=== PATIENT | male | born 1960 | race Caucasian/White ===

== ENCOUNTER 2021-10-23 12:08 | Emergency (ER) | payer MEDICARE ==
[~2021-10-23] VITALS: Ht 172.7 cm; Wt 78.0 kg
[2021-10-23] MEDS ORDERED: NITROGLYCERIN 0.4 MG SL TABS BTL 25'S SL ONE ×2 (12:26→12:45)
[2021-10-23] MEDS ORDERED: LORazepam 0.5 MG (ATIVAN) TABLET PO STA (12:35)
[2021-10-23] MEDS ORDERED: NS IV 1000 ML 1,000 ML IV SCH (12:45)
--- NOTE | 2021-10-23 12:47 | ED Chest Pain ---
General Chief Complaint: Chest Pain Stated Complaint: SYNCOPAL EPISODES; TREMORS Source: patient Exam Limitations: no limitations History of Present Illness Date Seen by Provider: Oct 23, 2021 Time Seen by Provider: 12:22 Initial Comments 61-year-old male patient states states he was mowing his lawn about 2 hours prior to arrival to ER and woke up on the ground with pressure feeling on his chest chest like an elephant sitting on his chest, shortness of breath, numbness of his hand, nausea and vomiting x 1. Patient states he had 6 pack of beer last night and did not eat anything this morning. Patient states he does not remember any chest pain or any unusual condition before his syncope. Patient was anxious and hyperventilating at arrival to ER and states he had history of panic attack. Allergies and Home Medications Allergies Coded Allergies: codeine (Verified Allergy, Unknown, 10/23/21) Patient Home Medication List Home Medication List Reviewed: Yes Magnesium Oxide (Magnesium Oxide) 400 Mg Tablet, 400 MG PO DAILY Prescribed by: Radha bailey on 10/23/21 1406 Review of Systems Review of Systems Constitutional: dizziness, weakness EENTM: No Symptoms Reported Respiratory: Shortness of Air Cardiovascular: See HPI Gastrointestinal: See HPI Genitourinary: No Symptoms Reported Musculoskeletal: no symptoms reported Skin: no symptoms reported Psychiatric/Neurological: See HPI Endocrine: No Symptoms Reported Hematologic/Lymphatic: No Symptoms Reported All Other Systems Reviewed Negative Unless Noted: Yes Past Uppssur-Eujpia-Lufdsb Hx Patient Social History Tobacco Use?: Yes Substance use?: No Alcohol Use?: Yes Alcohol type: Beer Alcohol Frequency: Couple times a week Physical Exam Vital Signs Vital Signs - First Documented 10/23/21 12:14 Temp 36.5 Pulse 99 Resp 17 B/P (MAP) 148/99 (115) Pulse Ox 100 O2 Delivery Room Air Capillary Refill : Height, Weight, BMI Height: '" Weight: lbs. oz. kg; BMI Method: General Appearance: Anxious, Moderate Distress HEENT: PERRL/EOMI, Other (Dry oral mucosa) Neck: Full Range of Motion Respiratory: Chest Non Tender, Lungs Clear, Normal Breath Sounds, Other (Hyperventilation) Cardiovascular: Regular Rate, Rhythm, No Edema, No Gallop, No JVD, No Murmur Gastrointestinal: Normal Bowel Sounds, No Organomegaly Extremity: Normal Capillary Refill, Normal Inspection Neurologic/Psychiatric: Alert, Oriented x3, No Motor/Sensory Deficits, Normal Mood/Affect Skin: Normal Color Progress/Results/Core Measures Results/Orders Lab Results Laboratory Tests Test 10/23/21 12:22 10/23/21 12:25 10/23/21 14:05 Range/Units Glucometer 104 70-110 MG/DL White Blood Count 7.1 4.3-11.0 10^3/uL Red Blood Count 4.81 4.30-5.52 10^6/uL Hemoglobin 16.1 13.3-17.7 g/dL Hematocrit 46 40-54 % Mean Corpuscular Volume 96 80-99 fL Mean Corpuscular Hemoglobin 34 25-34 pg Mean Corpuscular Hemoglobin Concent 35 32-36 g/dL Red Cell Distribution Width 13.1 10.0-14.5 % Platelet Count 200 130-400 10^3/uL Mean Platelet Volume 10.6 9.0-12.2 fL Immature Granulocyte % (Auto) 1 % Neutrophils (%) (Auto) 57 42-75 % Lymphocytes (%) (Auto) 29 12-44 % Monocytes (%) (Auto) 10 0-12 % Eosinophils (%) (Auto) 3 0-10 % Basophils (%) (Auto) 0 0-10 % Neutrophils # (Auto) 4.1 1.8-7.8 10^3/uL Lymphocytes # (Auto) 2.1 1.0-4.0 10^3/uL Monocytes # (Auto) 0.7 0.0-1.0 10^3/uL Eosinophils # (Auto) 0.2 0.0-0.3 10^3/uL Basophils # (Auto) 0.0 0.0-0.1 10^3/uL Immature Granulocyte # (Auto) 0.0 0.0-0.1 10^3/uL Sodium Level 136 135-145 MMOL/L Potassium Level 3.5 L 3.6-5.0 MMOL/L Chloride Level 96 L 98-107 MMOL/L Carbon Dioxide Level 16 L 21-32 MMOL/L Anion Gap 24 H 5-14 MMOL/L Blood Urea Nitrogen 5 L 7-18 MG/DL Creatinine 0.86 0.60-1.30 MG/DL Estimat Glomerular Filtration Rate 99 BUN/Creatinine Ratio 6 Glucose Level 96 70-105 MG/DL Calcium Level 9.5 8.5-10.1 MG/DL Corrected Calcium 8.5-10.1 MG/DL Magnesium Level 1.3 L 1.6-2.4 MG/DL Total Bilirubin 0.7 0.1-1.0 MG/DL Aspartate Amino Transf (AST/SGOT) 34 5-34 U/L Alanine Aminotransferase (ALT/SGPT) 23 0-55 U/L Alkaline Phosphatase 59 40-136 U/L Troponin I < 0.30 <0.30 NG/ML Total Protein 7.7 6.4-8.2 GM/DL Albumin 4.9 H 3.2-4.5 GM/DL Serum Alcohol 51 H <10 MG/DL Urine Opiates Screen NEGATIVE NEGATIVE Urine Oxycodone Screen NEGATIVE NEGATIVE Urine Methadone Screen NEGATIVE NEGATIVE Urine Propoxyphene Screen NEGATIVE NEGATIVE Urine Barbiturates Screen NEGATIVE NEGATIVE Ur Tricyclic Antidepressants Screen NEGATIVE NEGATIVE Urine Phencyclidine Screen NEGATIVE NEGATIVE Urine Amphetamines Screen NEGATIVE NEGATIVE Urine Methamphetamines Screen NEGATIVE NEGATIVE Urine Benzodiazepines Screen NEGATIVE NEGATIVE Urine Cocaine Screen NEGATIVE NEGATIVE Urine Cannabinoids Screen NEGATIVE NEGATIVE My Orders Orders - RADHA BAILEY MD Nitroglycerin 0.4 Mg Btl 25's (Nitrostat (10/23/21 12:26) Cbc With Automated Diff (10/23/21 12:31) Magnesium (10/23/21 12:31) Chest 1 View Ap/Pa Only (10/23/21 12:31) Ekg Tracing (10/23/21 12:31) Comprehensive Metabolic Panel (10/23/21 12:31) Monitor-Rhythm Ecg Trace Only (10/23/21 12:31) Ed Iv/Invasive Line Start (10/23/21 12:31) Troponin I Fs (10/23/21 12:31) Ct Head Wo (10/23/21 12:31) Nitroglycerin 0.4 Mg Btl 25's (Nitrostat (10/23/21 12:45) Ns Iv 1000 Ml (Sodium Chloride 0.9%) (10/23/21 12:45) Lorazepam Tablet (Ativan Tablet) (10/23/21 12:35) Alcohol (10/23/21 12:35) Drug Screen Stat (Urine) (10/23/21 12:35) Orthostatic Vital Signs (Adult (10/23/21 12:35) Magnesium 1 Gm/100 Ml Ivpb (Magnesium West (10/23/21 13:45) Potassium Chloride (Tablet) (K Dur Table (10/23/21 13:45) Medications Given in ED Current Medications Medications Dose Ordered Sig/Chantale Route Start Time Stop Time Status Last Admin Dose Admin Magnesium Sulfate/ Dextrose 100 ml @ 100 mls/hr ONCE ONCE IV 10/23/21 13:45 10/23/21 14:44 DC 10/23/21 13:55 100 MLS/HR Nitroglycerin 0.4 mg STK-MED ONCE SL 10/23/21 12:26 10/23/21 12:28 DC 10/23/21 12:33 0.4 MG Potassium Chloride 40 meq ONCE ONCE PO 10/23/21 13:45 10/23/21 13:46 DC 10/23/21 13:55 40 MEQ Vital Signs/I&O 10/23/21 12:14 Temp 36.5 Pulse 99 Resp 17 B/P (MAP) 148/99 (115) Pulse Ox 100 O2 Delivery Room Air Progress Progress Note : Progress Note Evaluation of patient in ER showed 61-year-old male patient with history of drinking alcohol 3-4 times a day and smoking brought in POV with syncopal episode while mowing the grass for couple hours and chest pain and nausea and vomiting. Patient had hyperventilation and anxiety at arrival to ER that gradually improved and chest pain resolved. EKG did not show acute finding. Patient did not have neurodeficit and CT of head was unremarkable. Labs showed potassium of 3.5 and magnesium of 1.3 and patient treated with oral potassium and IV magnesium. Blood alcohol was 51. Troponin was negative. Patient advised to gradually quit drinking alcohol. Plan discharge patient home with prescription of magnesium and instruction to increase potassium intake and follow-up with primary care physician in 3 to 5 days. Initial ECG Impression Date: Oct 23, 2021 Initial ECG Impression Time: 12:22 Initial ECG Rate: 97 Initial ECG Rhythm: Normal Sinus Initial ECG Intervals: Normal Comment EKG interpreted by me. EKG at 1219 showed normal sinus rhythm at rate of 97, [place] interval of 171 and QT of 342, possible left atrial enlargement, no acute ST and T wave elevation. Diagnostic Imaging Plain Films/CT/US/NM/MRI: chest Comments Chest x-ray interpreted by radiologist and reviewed by me and showed: NAME: GABRIELLA CASTILLO MED REC#: [id number] PT STATUS: REG ER : 1960 PHYSICIAN: RADHA BAILEY MD ADMIT DATE: 10/23/21/ER FS Draft Date of Exam:10/23/21 CHEST 1 VIEW AP/PA ONLY INDICATION: Chest pain. Portable chest 12:53 PM FINDINGS: Heart and mediastinum are normal. Lungs are clear. There are no effusions or pneumothoraces. IMPRESSION: No acute abnormalities in the chest. Dictated on workstation # [id number] Dict: 10/23/21 1255 Trans: 10/23/21 1257 [id number] Interpreted by: AUBREY TIMMONS MD Electronically signed by: CT Results/Progress Notes CT head interpreted by radiologist and reviewed by me and showed: NAME: GABRIELLA CASTILLO MED REC#: [id number] PT STATUS: REG ER : 1960 PHYSICIAN: RADHA BAILEY MD ADMIT DATE: 10/23/21/ER FS Draft Date of Exam:10/23/21 CT HEAD WO PROCEDURE: CT head without contrast. TECHNIQUE: Multiple contiguous axial images were obtained through the brain without the use of intravenous contrast. Auto Exposure Controls were utilized during the CT exam to meet ALARA standards for radiation dose reduction. INDICATION: Syncope. COMPARISON: No prior studies are available for comparison. FINDINGS: The ventricles and sulci are within normal limits. No sulcal effacement or midline shift is identified. No acute intra-axial or extra-axial hemorrhage is detected. Cisterns are patent. The visualized paranasal sinuses are clear. IMPRESSION: No acute intracranial process is detected. Dictated on workstation # [id number] Dict: 10/23/21 1259 Trans: 10/23/21 1303 [id number] Interpreted by: DEANDRE CHÁVEZ MD Electronically signed by: Departure Impression Primary Impression: Hyperventilation Additional Impressions: Panic attack Vasovagal syncope Hypomagnesemia Hypokalemia Alcohol use Tobacco use Non-cardiac chest pain Disposition: 01 HOME, SELF-CARE Condition: Improved Departure-Patient Inst. Decision time for Depature: 14:30 Referrals: ABHIJEET RAIN DO (PCP) Primary Care Physician Patient Instructions: Chest Pain That Is Not Caused by the Heart (DC), Hypokalemia (DC), Low Magnesium Level, Panic Attack ED, Vasovagal Response (DC) Add. Discharge Instructions: Quit drinking alcohol gradually Take high potassium and magnesium food Follow-up with your primary care patient in 3 to 5 days Return to ER as needed All discharge instructions reviewed with patient and/or family. Voiced understanding. Scripts Magnesium Oxide (Magnesium Oxide) 400 Mg Tablet 400 MG PO DAILY, #14 TAB Prov: RADHA BAILEY MD 10/23/21 RADHA BAILEY MD Oct 23, 2021 12:46
--- NOTE | 2021-10-23 12:57 | Diagnostic Imaging Report ---
INDICATION: Chest pain. Portable chest 12:53 PM FINDINGS: Heart and mediastinum are normal. Lungs are clear. There are no effusions or pneumothoraces. IMPRESSION: No acute abnormalities in the chest. Dictated by: Dictated on workstation # [id number]
--- NOTE | 2021-10-23 13:03 | Diagnostic Imaging Report ---
PROCEDURE: CT head without contrast. TECHNIQUE: Multiple contiguous axial images were obtained through the brain without the use of intravenous contrast. Auto Exposure Controls were utilized during the CT exam to meet ALARA standards for radiation dose reduction. INDICATION: Syncope. COMPARISON: No prior studies are available for comparison. FINDINGS: The ventricles and sulci are within normal limits. No sulcal effacement or midline shift is identified. No acute intra-axial or extra-axial hemorrhage is detected. Cisterns are patent. The visualized paranasal sinuses are clear. IMPRESSION: No acute intracranial process is detected. Dictated by: Dictated on workstation # [id number]
[2021-10-23 13:04] LABS: BASOPHILS % (AUTO) 0 % (0-10); EOSINOPHILS # (AUTO) 0.2 10^3/uL (0.0-0.3); EOSINOPHILS % (AUTO) 3 % (0-10); HEMATOCRIT 46 % (40-54); HEMOGLOBIN 16.1 g/dL (13.3-17.7); LYMPHOCYTES # (AUTO) 2.1 10^3/uL (1.0-4.0); LYMPHOCYTES % (AUTO) 29 % (12-44); MEAN CORPUSCULAR HEMOGLOBIN 34 pg (25-34); MEAN CORPUSCULAR HGB CONC 35 g/dL (32-36); MEAN CORPUSCULAR VOLUME 96 fL (80-99); MEAN PLATELET VOLUME 10.6 fL (9.0-12.2); MONOCYTES # (AUTO) 0.7 10^3/uL (0.0-1.0); MONOCYTES % (AUTO) 10 % (0-12); NEUTROPHILS # (AUTO) 4.1 10^3/uL (1.8-7.8); NEUTROPHILS % (AUTO) 57 % (42-75); PLATELET COUNT 200 10^3/uL (130-400); WHITE BLOOD COUNT 7.1 10^3/uL (4.3-11.0)
[2021-10-23 13:28] LABS: BUN/CREATININE RATIO 6; CARBON DIOXIDE 16 MMOL/L (21-32); CHLORIDE 96 MMOL/L (98-107); CREATININE SERUM 0.86 MG/DL (0.60-1.30); GFR ESTIMATED 99; GLUCOSE 96 MG/DL (70-105); POTASSIUM 3.5 MMOL/L (3.6-5.0); SODIUM 136 MMOL/L (135-145)
[2021-10-23 13:29] LABS: ALANINE AMINOTRANSFERASE 23 U/L (0-55); ALBUMIN 4.9 GM/DL (3.2-4.5); ALKALINE PHOSPHATASE 59 U/L (40-136); BILIRUBIN,TOTAL 0.7 MG/DL (0.1-1.0); CALCIUM 9.5 MG/DL (8.5-10.1); MAGNESIUM 1.3 MG/DL (1.6-2.4); TOTAL PROTEIN 7.7 GM/DL (6.4-8.2)
[2021-10-23] MEDS ORDERED: KCL 20 MEQ TAB (K-DUR) PO ONE (13:45)
[2021-10-23] MEDS ORDERED: MAGNESIUM 1 GM/100 ML IVPB 100 ML IV ONE (13:45)
[2021-10-23] MEDS ORDERED: MAGN400T7 PO (14:06)
[2021-10-23 14:40] LABS: AMPHETAMINE SCREEN, URINE NEGATIVE (NEGATIVE); BARBITURATE SCREEN URINE NEGATIVE (NEGATIVE); BENZODIAZEPINES SCREEN URINE NEGATIVE (NEGATIVE); CANNABINOID SCREEN, URINE NEGATIVE (NEGATIVE); COCAINE SCREEN URINE NEGATIVE (NEGATIVE); METHADONE STAT NEGATIVE (NEGATIVE); OPIATE SCREEN URINE NEGATIVE (NEGATIVE); OXYCODONE STAT NEGATIVE (NEGATIVE); PROPOXYPHENE STAT NEGATIVE (NEGATIVE); TRICYCLIC ANTIDEPRESSANTS SCRE NEGATIVE (NEGATIVE)
[2021-10-23 15:08] VITALS: BP 130/77
== END 2021-10-23 15:00 | disposition home or self-care (01) ==
LOC: EDUNIT# 12:08 → ER FS 12:10
DX: R55 Syncope and collapse (principal); R06.4 Hyperventilation; F41.0 Panic disorder [episodic paroxysmal anxiety]; E83.42 Hypomagnesemia; E87.6 Hypokalemia; F10.10 Alcohol abuse, uncomplicated; F17.210 Nicotine dependence, cigarettes, uncomplicated; Y90.2 Blood alcohol level of 40-59 mg/100 ml
CPT/HCPCS: 36415; 70450; 71045; 80053; 80306; 82947; 83735; 84484; 85025; 93041; 99284; G0480; 80320